=== PATIENT | female | born 2000 | race Caucasian/White ===

== ENCOUNTER 2022-10-13 16:29 | Day surgery (SDC) | payer MEDICAID, SELFPAY ==
[2022-10-13] VITALS (15 sets, daily range): BP systolic 117–131; BP diastolic 71–89; PULSE 84–113; RESP 16–20; TEMP 37.1–37.8; O2SAT 94–99
--- NOTE | 2022-10-13 17:03 | CRLHL7_ITS ---
For Patients: As a result of the Century Cures Act, medical imaging exams and procedure reports are released immediately into your electronic medical record. You may view this report before your referring provider. If you have questions, please contact your health care provider. INDICATION: Sore throat. TECHNIQUE: CT of the neck with 89 cc Isovue 370 iodinated contrast agent. Coronal and sagittal reconstructions are included. COMPARISON: None. FINDINGS: There is enlargement and hyper enhancement involving the bilateral palatine tonsils, compatible with tonsillitis/pharyngitis. There is a right peritonsillar abscess which measures 18 x 27 millimeters in axial plane and 25 millimeters in craniocaudal plane. There is associated medial displacement of the right-sided tonsil. There is mild enlargement of the uvula. There is partial effacement of the oropharyngeal airway. Edematous enlargement involving the right-sided hypopharynx/supraglottic larynx. Cellulitic changes are present within the right submandibular space and anterior neck. Multiple enlarged reactive lymph nodes within the upper neck. The airway including the trachea is normal and is patent. The parotid glands, submandibular and sublingual glands are normal in appearance. The thyroid gland is normal in appearance. The vascular structures opacify normally with contrast material. No suspicious lytic or blastic osseous lesions. Scattered cervical spondylosis without significant bony neural foraminal stenosis. No periapical dental disease. Visualized paranasal sinuses and mastoid air cells are clear. Visualized orbital and intracranial contents are normal. Supraclavicular regions, mediastinum and soft tissues of the imaged chest wall are normal. Visualized portions of the upper lungs are clear. IMPRESSION: 1. Findings compatible with tonsillitis/pharyngitis. There is a 27 millimeter right peritonsillar abscess. Mass effect results in partial effacement of the pharyngeal airway. Edema/cellulitis involves the right-sided supraglottic larynx/hypopharynx and overlying soft tissues of the neck. Please note that all CT scans at this facility use dose modulation, iterative reconstruction, and/or weight-based dosing when appropriate to reduce radiation dose to as low as reasonably achievable. Dictated by Rudi Gonzlaez MD @ 10/13/2022 6:59:38 PM (Electronically Signed)
--- NOTE | 2022-10-13 17:05 | ED.GENADULT ---
HPI - General Adult General Chief complaint: Cough Stated complaint: [place]--cough, weakness Time Seen by Provider: 10/13/22 16:38 History of Present Illness HPI narrative: This 22-year-old female comes in reporting sore throat over the past 5 days. She states that she was not feeling well over the past month with occasional sore throats but it has been much worse over the past 5 days. She was seen twice elsewhere for these symptoms in these past few days. She did received IV doses of steroids and was diagnosed with mononucleosis. She comes in today stating that she has trouble opening her mouth and does not want to swallow but rather is spitting frequently. She does not report any fevers. She does arrive here with a temperature of 100.0? F and a pulse at 105. Related Data Home Medications Medication Instructions Recorded Confirmed No Known Home Medications 10/13/22 10/13/22 Allergies Allergy/AdvReac Type Severity Reaction Status Date / Time amoxicillin AdvReac Mild Verified 10/13/22 16:46 Penicillins AdvReac Mild Verified 10/13/22 16:46 Review of Systems Status of ROS: Reports: 10 or more systems reviewed and unremarkable except as noted in History and below Narrative: Constitutional: No fevers, no weight gain or loss. Eyes: No discharge. No vision changes. HENT: No congestion, no ear pain. Sore throat with muffled voice and trismus. Cardiovascular: No chest pain, no palpitations. Respiratory: No shortness of breath, no wheezes, no cough. Gastrointestinal: No abdominal pain, no vomiting, no diarrhea. Genitourinary: No dysuria, no hematuria. Musculoskeletal: Normal range of motion. Skin: No rashes, no pruritis. Neurological: No dizziness, weakness, sensory change, speech change. Endo/Heme/Allergies: No bruising or bleeding. No polydipsia. Pysch: no suicidality, no anxiety, no insomnia. All other systems reviewed and are negative. PFSH PFSH Social History Smoking Status: Never smoker Do you use any of these nicotine containing products: None How often do you have a drink containing alcohol: never How often do you have six or more drinks on one occasion: Never AUDIT-C Alcohol total score: 0 Non-prescribed substance use: denies use Exam Narrative: Exam Narrative: Constitutional: Well-developed, well-nourished, no acute distress. HEENT: The patient does not open her mouth very wide. With the assistance of a tongue blade I was not able yet to assess her posterior oropharynx visually. She does have some anterior cervical lymphadenopathy. Neck: Normal range of motion. Nontender. Supple. Heart: Regular. No murmurs. Borderline tachycardia. Intact distal pulses. Lungs: Clear to auscultation. No chest discomfort. No wheezes, rhonchi, or rales. Abdomen: Normal bowel sounds. Nontender. No rebound tenderness. Genitalia: Deferred. Back: No midline tenderness. Normal range of motion. Extremities: Normal range of motion. No injury. Skin: Intact. No rash. Warm. No erythema or pallor. Neurologic: No altered sensation. No weakness. Alert and oriented. Psychiatric: No suicidality. No anxiety or depression. No insomnia. Nursing notes and vitals signs are reviewed. Const: Vital Signs, click to edit/add: Vital Signs - 24 hr 10/13/22 16:38 10/13/22 17:38 10/13/22 18:03 Temperature 100.0 F H Pulse Rate [Pulse Oximeter] 105 H 88 90 Respiratory Rate 18 16 16 Blood Pressure [Ri ght Upper Arm] 131/89 Pulse Oximetry 97 98 97 Oxygen Delivery Me thod Room Air Room Air Room Air Course Vital Signs Vital signs: Initial Vital Signs Temperature 100.0 F H 10/13/22 16:38 Temperature Source Temporal Artery Scan 10/13/22 16:38 Pulse Rate 105 H 10/13/22 16:38 Pulse Rhythm Regular 10/13/22 16:38 Respiratory Rate 18 10/13/22 16:38 Blood Pressure 131/89 10/13/22 16:38 Blood Pressure Mean 103 10/13/22 16:38 Blood Pressure Position Sitting 10/13/22 16:38 Pulse Oximetry 97 10/13/22 16:38 Oxygen Delivery Method Room Air 10/13/22 16:38 Vital Signs Temperature 100.0 F H 10/13/22 16:38 Pulse Rate 105 H 10/13/22 16:38 Respiratory Rate 18 10/13/22 16:38 Blood Pressure 131/89 10/13/22 16:38 Pulse Oximetry 97 10/13/22 16:38 Oxygen Delivery Method Room Air 10/13/22 16:38 Temperature 100.0 F H 10/13/22 16:38 Pulse Rate 90 10/13/22 18:03 Respiratory Rate 16 10/13/22 18:03 Blood Pressure 131/89 10/13/22 16:38 Pulse Oximetry 97 10/13/22 18:03 Oxygen Delivery Method Room Air 10/13/22 18:03 Medical Decision Making MDM Narrative Medical decision making narrative: This patient comes in with muffled voice, trismus, and sore throat for 5 days. She was diagnosed with mononucleosis and did have a couple steroid treatments. She has worsened since then. She is showing symptoms suspicious for a abscess. An IV was established and she had a CT scan of the soft tissue of her neck with IV contrast. This does show evidence of a right-sided abscess measuring 2.7 cm. The patient's airway is intact. I did speak with the Ear Nose and Throat physician on-call, Dr. Flowers, who states that he will come in and drain the abscess. Lab Data Labs: Lab Results 10/13/22 10/13/22 Range/Units 17:20 17:32 WBC 13.45 H (4.50-11.00) K/uL RBC 4.31 (4.00-5.20) m/uL Hgb 10.4 L (12.0-16.0) gm/dL Hct 34.1 (33.0-51.0) % MCV 79 L (80-100) fL MCH 24 L (26-34) pg MCHC 31 L (32-36) gm/dL RDW Coeff of Karri 16.3 H (11.5-15.5) % Plt Count 232 (140-440) K/uL Neut % (Auto) 38.3 L (42.0-72.0) % Lymph % (Auto) 52.9 H (20-44) % [place] % (Auto) 8.3 (0.0-11.0) % Eos % (Auto) 0.0 (0.0-7.0) % Baso % (Auto) 0.2 (0.0-3.0) % Neut # (Auto) 5.20 (1.7-7.0) K/uL Lymph # (Auto) 7.10 H (0.90-2.90) K/uL [place] # (Auto) 1.10 H (0.00-0.90) K/UL Eos # (Auto) 0.00 (0.00-0.50) K/uL Baso # (Auto) 0.00 (0.00-0.30) K/uL Abs Immat Gran (auto) 0.00 (0.00-0.30) K/uL Imm/Tot Granulo (auto) 0.3 % Diff Slide Review Acceptable Review (Acceptable) Sodium 139 (135-149) mmol/L Potassium 4.0 (3.6-5.1) mmol/L Chloride 105 (96-114) mmol/L Carbon Dioxide 22 (20-32) mmol/L Anion Gap 12 (7-15) mEq/L BUN 14 (5-24) mg/dL Creatinine 0.6 (0.5-1.5) mg/dL Estimated GFR 130 ml/min Glucose 90 (60-115) mg/dL Calcium 9.2 (8.4-10.6) mg/dL Urine HCG, Qual Negative (Negative) Monoscreen POSITIVE A (Negative) Imaging Data CT Soft Tissue Neck: Radiologist's impression: Findings compatible with tonsillitis/pharyngitis. There is a 27 millimeter right peritonsillar abscess. Mass effect results in partial effacement of the pharyngeal airway. Edema/cellulitis involves the right-sided supraglottic larynx/hypopharynx and overlying soft tissues of the neck. Discharge Plan Discharge Clinical Impression: Tonsillar abscess Patient Disposition: XFER to OR Condition: Unchanged Prescriptions: No Action No Known Home Medications Follow Up/Referrals: Femi Morales MD [Referring] -
[2022-10-13] MEDS: KETOROLAC 30 MG/ML inj IVP (17:25)
[2022-10-13 17:34] LABS: Basophils Percent Auto 0.2 % (0.0-3.0); Hematocrit 34.1 % (33.0-51.0); Hemoglobin* 10.4 gm/dL (12.0-16.0); Immature Granulocytes Pct Auto 0.3 %; Lymphocytes Percent Auto 52.9 % (20-44); Mean Corpuscular HGB Conc 31 gm/dL (32-36); Mean Corpuscular Hemoglobin 24 pg (26-34); Mean Corpuscular Volume 79 fL (80-100); Monocytes Percent Auto 8.3 % (0.0-11.0); Neutrophils Percent Auto 38.3 % (42.0-72.0); Platelet Count* 232 K/uL (140-440); RDW Coefficient of Variation % 16.3 % (11.5-15.5); Red Blood Count 4.31 m/uL (4.00-5.20); White Blood Count* 13.45 K/uL (4.50-11.00)
[2022-10-13] MEDS: 0.9 % SODIUM CHLORIDE 1000 ml 1,000 ML IV (17:42)
[2022-10-13 17:43] LABS: Slide Review Reflex Yes
[2022-10-13 17:49] LABS: Chloride* 105 mmol/L (96-114); Sodium* 139 mmol/L (135-149)
[2022-10-13 17:52] LABS: Anion Gap 12 mEq/L (7-15); Carbon Dioxide* 22 mmol/L (20-32); Creatinine* 0.6 mg/dL (0.5-1.5); Estimated Glomerular Filt Rate 130 ml/min
[2022-10-13 17:52] LABS: Ur HCG Qualitative* Negative (Negative)
[2022-10-13 17:53] LABS: Blood Urea Nitrogen* 14 mg/dL (5-24); Calcium* 9.2 mg/dL (8.4-10.6); Glucose* 90 mg/dL (60-115)
[2022-10-13 18:07] LABS: Slide Review Acceptable Review (Acceptable)
[2022-10-13 18:15] LABS: Mono Screen* POSITIVE (Negative)
--- NOTE | 2022-10-13 19:21 | ED.NURSE ---
Dr. Miller, ENT requested OR crew called in. House Sup notified. ENT ETA 30min.
--- NOTE | 2022-10-13 19:44 | ED.NURSE ---
Patient report given to HYDROPULPER OPERATOR.
[2022-10-13] MEDS: LACTATED RINGERS 1000 ML 1,000 ML 75 ML IV (20:17)
--- NOTE | 2022-10-13 20:47 | P.ANES_ITS ---
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
--- NOTE | 2022-10-13 21:00 | P.PCN_ITS ---
Procedure Note Date Seen: 10/13/22 Date of procedure: 10/13/22 Will [facility] bill your pro fee for this procedure?: Yes Pre-op diagnosis: Right peritonsillar abscess Post-op diagnosis: same Procedure: Incision and drainage right peritonsillar abscess under general anesthesia Procedure Description: Patient was seen in the emergency room with 1 month history of sore throat. She was diagnosed with mononucleosis 1 week ago elsewhere. She presented today with a worsening sore throat. CT scan was obtained revealed a 2.7 cm right peritonsillar abscess. Recommended incision and drainage right peritonsillar abscess. Discussed goals, risks and potential complications. Discussed possible difficulties and healing secondary to mononucleosis. Discussed potential need for tonsillectomy. Signed consent was obtained. Preop diagnosis: Right peritonsillar abscess, mononucleosis Postop diagnosis: Same Procedure: Incision and drainage right peritonsillar abscess Anesthesia: General oral endotracheal anesthesia Surgeon Dr. Chung Miller, no assistants Procedure: After adequate general oral endotracheal anesthesia, patient was prepped and draped in the [place] position. The large mouth gag was inserted in the oropharynx was exposed. She had an exit of tonsillitis the right side with some bulging of the peritonsillar soft palate region. There was some drainage of pus from the superior tonsil. Incision was made with the needlepoint cautery in the midportion peritonsillar region approximately 1 cm. With blunt dissection with the curved forceps the abscess cavity was entered in a posterior-inferior direction. Large amount of pus was suctioned clear. Cavity was irrigated with saline. With initial incision and removal of pus, culture for general bacteria and sensitivities was obtained. Hemostasis of the incision edge was obtained with spatula tip cautery. Patient tolerated procedure well, was awakened and extubated in the operating room and returned to the recovery room in stable condition. Is with blood loss was minimal, less than 1 mL.. Anesthesia: GETA Surgeon: Chung Miller MD Estimated blood loss (mL): 0 Pathology: specimen obtained, sent to pathology Condition: stable Disposition: PACU
[2022-10-13] MEDS: OXYCODONE 5 MG TABLET PO (23:15)
--- NOTE | 2022-10-13 23:42 | PC.NURSE ---
pt d/c at 2315, VSS WNL, prn 5mg oxy given just before d/c crushed in pudding, d/c packet reviewed, all questions answered, pt accompanied by mother and grandma, IV removed, cath intact.
== END 2022-10-13 23:15 | disposition home or self-care (01) ==
LOC: ED 20:13 → SS 20:29
PROVIDERS: Emergency Provider Emergency Medicine Emergency Medical Services; PCP Family Medicine; Visit Provider Otolaryngology
PROC: 0C9PXZZ Drainage of Tonsils, External Approach (ICD-10-PCS; CPT 42700; principal; 2022-10-13 20:00)
DX: J36 Peritonsillar abscess (principal); B27.90 Infectious mononucleosis, unspecified without complication
CPT/HCPCS: 42700; 00170; 36415; 70491; 80048; 81025; 84703; 85025; 86308; 87070; 87075; 87076; 87181; 87184; 87205; 99140; 99285; A9270; J0330; J1100; J1885; J2405; J2704; J3010; J7030; J7120; Q9967

== ENCOUNTER 2022-10-15 10:29 | Day surgery (SDC) | payer MEDICAID, SELFPAY ==
[2022-10-15] VITALS (18 sets, daily range): BP systolic 113–137; BP diastolic 70–87; PULSE 74–94; RESP 16–20; TEMP 36.7–37.9; O2SAT 96–99; BMI 25.1; BMI 26.3
--- NOTE | 2022-10-15 11:06 | CRLHL7_ITS ---
For Patients: As a result of the Century Cures Act, medical imaging exams and procedure reports are released immediately into your electronic medical record. You may view this report before your referring provider. If you have questions, please contact your health care provider. INDICATION: TONSILAR ABSCESS, RECURRENCE? TECHNIQUE: CT of the neck with 89 ml iodinated contrast agent. Coronal and sagittal reconstructions are included. COMPARISON: 10/13/2022 CT FINDINGS: Mild craniocaudal enlargement of right peritonsillar abscess measuring 2.3 cm AP x 1.7 cm TR x 2.4 cm craniocaudal, previously 2.2 cm craniocaudal. There is similar partial effacement of the right parapharyngeal fat space and mild to moderate narrowing of the oropharyngeal airway. Stable enlarged enhancing bilateral level 2 cervical lymph nodes compatible with reactive/infectious tendinopathy. The oral cavity, nasopharyngeal, oropharyngeal and hypopharyngeal mucosal spaces are normal. The supraglottic, glottic and infraglottic larynx are unremarkable. The airway including the trachea is normal and is patent. The parotid glands, submandibular and sublingual glands are normal in appearance. The thyroid gland is normal in appearance. The vascular structures opacify normally with contrast material. No suspicious lytic or blastic osseous lesions. Visualized paranasal sinuses and mastoid air cells are clear. Visualized orbital and intracranial contents are unremarkable. Supraclavicular regions, mediastinum and soft tissues of the imaged chest wall are unremarkable. New 4 mm right upper lobe ground-glass nodule is nonspecific (series 3, image 88). IMPRESSION: 1. Mild craniocaudal enlargement of right peritonsillar abscess measuring 2.3 cm AP x 1.7 cm TR x 2.4 cm craniocaudal, previously 2.2 cm craniocaudal. Similar partial effacement of the right parapharyngeal fat space and mild to moderate narrowing of the oropharyngeal airway. 2. Stable enlarged enhancing bilateral level 2 cervical lymph nodes compatible with reactive/infectious tendinopathy. Increased size of bilateral level 5 lymph nodes likely reactive in etiology. 3. New 4 mm right upper lobe ground-glass nodule is nonspecific but could be infectious inflammatory in etiology. Please note that all CT scans at this facility use dose modulation, iterative reconstruction, and/or weight-based dosing when appropriate to reduce radiation dose to as low as reasonably achievable. Dictated by Lan Davis MD @ 10/15/2022 12:21:43 PM (Electronically Signed)
--- NOTE | 2022-10-15 11:07 | ED.GENADULT ---
HPI - General Adult General Chief complaint: Sore Throat Stated complaint: [place], abscess in throat Time Seen by Provider: 10/15/22 10:39 History of Present Illness HPI narrative: This 22-year-old female was seen by me a couple days ago because of a tonsillar abscess. She was admitted to the OR for drainage of this abscess and did better until this morning where she again has trismus and does not want to speak and is spitting out her secretions. Her symptoms are complicated with positive lab results for mononucleosis. She is not on an antibiotic. She arrives here with normal vital signs. The patient's mother contacted the ear nose and throat physician on-call who recommended that she come back here for repeat imaging. Related Data Allergies Allergy/AdvReac Type Severity Reaction Status Date / Time amoxicillin AdvReac Mild Verified 10/15/22 11:37 Penicillins AdvReac Mild Verified 10/15/22 11:37 Review of Systems Status of ROS: Reports: 10 or more systems reviewed and unremarkable except as noted in History and below Narrative: Constitutional: No fevers, no weight gain or loss. Eyes: No discharge. No vision changes. HENT: Sore throat with trismus and muffled voice. Cardiovascular: No chest pain, no palpitations. Respiratory: No shortness of breath, no wheezes, no cough. Gastrointestinal: No abdominal pain, no vomiting, no diarrhea. Genitourinary: No dysuria, no hematuria. Musculoskeletal: Normal range of motion. Skin: No rashes, no pruritis. Neurological: No dizziness, weakness, sensory change, speech change. Endo/Heme/Allergies: No bruising or bleeding. No polydipsia. Pysch: no suicidality, no anxiety, no insomnia. All other systems reviewed and are negative. PFSH PFS Social History Smoking Status: Never smoker Do you use any of these nicotine containing products: None How often do you have a drink containing alcohol: never How often do you have six or more drinks on one occasion: Never AUDIT-C Alcohol total score: 0 Non-prescribed substance use: denies use service: No Exam Narrative: Exam Narrative: Constitutional: Well-developed, well-nourished, no acute distress. HEENT: Normocephalic, atraumatic. Trismus. I am unable to visualize her posterior oropharynx. Cervical lymphadenopathy. Neck: Normal range of motion. Nontender. Supple. Heart: Regular. No murmurs. Normal rate. Intact distal pulses. Lungs: Clear to auscultation. No chest discomfort. No wheezes, rhonchi, or rales. Abdomen: Normal bowel sounds. Nontender. No rebound tenderness. Genitalia: Deferred. Back: No midline tenderness. Normal range of motion. Extremities: Normal range of motion. No injury. Skin: Intact. No rash. Warm. No erythema or pallor. Neurologic: No altered sensation. No weakness. Alert and oriented. Psychiatric: No suicidality. No anxiety or depression. No insomnia. Nursing notes and vitals signs are reviewed. Const: Vital Signs, click to edit/add: Vital Signs - 24 hr 10/15/22 10:41 10/15/22 13:20 Temperature 98.0 F 98.4 F Pulse Rate [Pulse Oximeter] 94 74 Respiratory Rate 20 20 Blood Pressure [Ri ght Upper Arm] 124/83 118/77 Pulse Oximetry 99 98 Oxygen Delivery Me thod Room Air Course Vital Signs Vital signs: Initial Vital Signs Temperature 98.0 F 10/15/22 10:41 Temperature Source Temporal Artery Scan 10/15/22 10:41 Pulse Rate 94 10/15/22 10:41 Pulse Rhythm Regular 10/15/22 10:41 Respiratory Rate 20 10/15/22 10:41 Blood Pressure 124/83 10/15/22 10:41 Blood Pressure Mean 96 10/15/22 10:41 Blood Pressure Position Sitting 10/15/22 10:41 Pulse Oximetry 99 10/15/22 10:41 Vital Signs Temperature 98.0 F 10/15/22 10:41 Pulse Rate 94 10/15/22 10:41 Respiratory Rate 20 10/15/22 10:41 Blood Pressure 124/83 10/15/22 10:41 Pulse Oximetry 99 10/15/22 10:41 Temperature 98.4 F 10/15/22 13:20 Pulse Rate 74 10/15/22 13:20 Respiratory Rate 20 10/15/22 13:20 Blood Pressure 118/77 10/15/22 13:20 Pulse Oximetry 98 10/15/22 13:20 Oxygen Delivery Method Room Air 10/15/22 13:20 Medical Decision Making MDM Narrative Medical decision making narrative: This patient comes with recurrent symptoms suggestive of tonsillar abscess. She was seen by me 2 days ago with similar symptoms of trismus, muffled voice, and unwillingness to swallow. CT imaging at that time showed a 2.7 cm abscess in the right tonsillar area. She had this incised and drained and felt better yesterday but symptoms have returned today. She is unable to open her mouth very wide again and has unwillingness to speak or swallow. Ear nose and throat physician was contacted and she was instructed to return here for repeat imaging. CT imaging does show a recurrent of this abscess now measuring about 2.5 cm. At the same time the patient was here I received a phone call from the lab who would been processing a a throat swab from a couple days ago. It was negative initially but the cultures showing some suspicion for group C strep and a possibility of an anaerobic organism. This culture is being sent away for further clarification of the culture results and for sensitivities. I did inform Dr. Flowers regarding these findings. The patient may benefit from an anaerobic directed antibiotics such as Flagyl but will undergo another incision and drainage in the operating room. There is some benefit to giving clindamycin also which should not interact with her current positive mononucleosis status. The patient's mother states that they have seen in epidemiology assist also because it seems that members of her family have more than normal occurrences of skin abscesses. Dr. Flowers is in clinic till mid to late afternoon and will then come here to incise and drain this abscess. Lab Data Labs: Lab Results 10/15/22 Range/Units 11:25 WBC 7.76 (4.50-11.00) K/uL RBC 4.49 (4.00-5.20) m/uL Hgb 10.9 L (12.0-16.0) gm/dL Hct 35.6 (33.0-51.0) % MCV 79 L (80-100) fL MCH 24 L (26-34) pg MCHC 31 L (32-36) gm/dL RDW Coeff of Karri 15.8 H (11.5-15.5) % Plt Count 264 (140-440) K/uL Neut % (Auto) 45.7 (42.0-72.0) % Lymph % (Auto) 45.5 H (20-44) % [place] % (Auto) 8.0 (0.0-11.0) % Eos % (Auto) 0.4 (0.0-7.0) % Baso % (Auto) 0.3 (0.0-3.0) % Neut # (Auto) 3.55 (1.7-7.0) K/uL Lymph # (Auto) 3.50 H (0.90-2.90) K/uL [place] # (Auto) 0.60 (0.00-0.90) K/UL Eos # (Auto) 0.03 (0.00-0.50) K/uL Baso # (Auto) 0.02 (0.00-0.30) K/uL Abs Immat Gran (auto) 0.01 (0.00-0.30) K/uL Imm/Tot Granulo (auto) 0.1 % Diff Slide Review Acceptable Review (Acceptable) Discharge Plan Discharge Clinical Impression: Tonsillar abscess Patient Disposition: XFER to OR Condition: Unchanged
[2022-10-15] MEDS: 0.9 % SODIUM CHLORIDE 1000 ml 1,000 ML IV (11:26)
[2022-10-15 11:41] LABS: Basophils Absolute Auto 0.02 K/uL (0.00-0.30); Basophils Percent Auto 0.3 % (0.0-3.0); Eosinophils Absolute Auto 0.03 K/uL (0.00-0.50); Eosinophils Percent Auto 0.4 % (0.0-7.0); Hematocrit 35.6 % (33.0-51.0); Hemoglobin* 10.9 gm/dL (12.0-16.0); Immature Granulocytes Abs Auto 0.01 K/uL (0.00-0.30); Immature Granulocytes Pct Auto 0.1 %; Lymphocytes Percent Auto 45.5 % (20-44); Mean Corpuscular HGB Conc 31 gm/dL (32-36); Mean Corpuscular Hemoglobin 24 pg (26-34); Mean Corpuscular Volume 79 fL (80-100); Neutrophils Absolute Auto 3.55 K/uL (1.7-7.0); Neutrophils Percent Auto 45.7 % (42.0-72.0); Platelet Count* 264 K/uL (140-440); RDW Coefficient of Variation % 15.8 % (11.5-15.5); Red Blood Count 4.49 m/uL (4.00-5.20); White Blood Count* 7.76 K/uL (4.50-11.00)
[2022-10-15] MEDS: KETOROLAC 15 MG/ML inj IVP (11:46)
[2022-10-15 11:48] LABS: Slide Review Reflex Yes
[2022-10-15 12:24] LABS: Slide Review Acceptable Review (Acceptable)
--- NOTE | 2022-10-15 13:51 | ED.NURSE ---
Pt handed off to same day surgery.
[2022-10-15] MEDS: LACTATED RINGERS 1000 ML 1,000 ML 100 ML IV (15:15)
--- NOTE | 2022-10-15 15:21 | SUR.PREOP ---
no ucg needed as per anesthesia. ucg was done earlier this week
--- NOTE | 2022-10-15 15:41 | W.ANESCHARGE ---
Anesthesia Charges Start Date/Time Anesthesia Start Date: 10/15/22 Anesthesia Start Time: 15:29 Stop Date/Time Anesthesia Stop Date: 10/15/22 Anesthesia Stop Time: 15:53 Summary Emergency: MDA
--- NOTE | 2022-10-15 15:43 | W.PM.ENTHP ---
ENT-H&P: HPI History of Present Illness Date Seen: 10/15/22 Chief complaint: [place], abscess in throat recurrent right peritonsi Narrative: Brit Centeno is a 22 year old female who had a right peritonsillar abscess drained by Dr. Miller on Wednesday evening. He felt was well drained and irrigated however she is allergic to penicillins and also has mono so no antibiotics were given postoperatively. She now has recurrent trismus and sore throat. Review of Systems Narrative: Unchanged from previous [facility] Social History Smoking Status: Never smoker Do you use any of these nicotine containing products: None How often do you have a drink containing alcohol: never How often do you have six or more drinks on one occasion: Never AUDIT-C Alcohol total score: 0 Non-prescribed substance use: denies use service: No Meds Home Medications and Allergies Allergies Allergy/AdvReac Type Severity Reaction Status Date / Time amoxicillin AdvReac Mild Verified 10/15/22 11:37 Penicillins AdvReac Mild Verified 10/15/22 11:37 Exam Narrative: Exam Narrative: General skin neuro respiratory gait peripheral vascular vocal quality skin of head neck negative with the exception of muffled voice, she has severe trismus. Obvious recurrent right peritonsillar abscess. Const: Vital Signs, click to edit/add: Vital Signs - 24 hr 10/15/22 10:41 10/15/22 13:20 10/15/22 14:34 Temperature 98.0 F 98.4 F 99.9 F H Pulse Rate 79 Pulse Rate [Pulse Oximeter] 94 74 Respiratory Rate 20 20 16 Blood Pressure 124/82 Blood Pressure [Ri ght Upper Arm] 124/83 118/77 Pulse Oximetry 99 98 99 Oxygen Delivery Me thod Room Air Room Air ENT-H&P: Result Labs Labs: Short CBC 10/15/22 Range/Units 11:25 WBC 7.76 (4.50-11.00) K/uL Hgb 10.9 L (12.0-16.0) gm/dL Hct 35.6 (33.0-51.0) % Plt Count 264 (140-440) K/uL Assessment and Plan Assessment and plan (1) Tonsillar abscess: Status: Acute Plan Recurrent right peritonsillar abscess. Drained [address] scan. Reviewed options and risks with her. Would recommend reoperation for recurrent drainage and try to establish inferior drainage. Will cover with clindamycin postoperatively. Risks including anesthesia bleeding recurrence adverse reaction to clindamycin etc. were all reviewed. Rec discussed use of probiotics with the clindamycin.
--- NOTE | 2022-10-15 15:45 | W.PM.ENTPROC ---
Procedure Note Date of procedure: 10/15/22 Procedure: Preoperative diagnosis right peritonsillar abscess recurrent drained 2 days ago Postoperative diagnosis same Procedure incision drainage right peritonsillar abscess with irrigation. Under general endotracheal anesthesia patient was prepped and draped in usual fashion the McIvor mouth gag inserted the tongue retracted forward. The previous 1 cm incision was reopened with blunt forceps causing immediate extrusion of a large amount of pus. This cavity was then irrigated copiously with normal saline. Then a blunt forceps was used to go through the cavity established inferior drainage again approximately 1 cm. Bleeding was controlled with Coblation. The patient procedure well was taken recovery in satisfactory condition. Blood loss during procedure less than 10 mL. There were no complications Surgeon: Foster Woods MD
--- NOTE | 2022-10-15 15:56 | W.ANESCHARGE ---
Anesthesia Charges Start Date/Time Anesthesia Start Date: 10/15/22 Anesthesia Start Time: 15:29 Stop Date/Time Anesthesia Stop Date: 10/15/22 Anesthesia Stop Time: 15:53 Summary Emergency: MDA
[2022-10-15] MEDS: OXYCODONE 5 MG TABLET PO (17:55)
--- NOTE | 2022-10-15 19:15 | PC.NURSE ---
Discharge Summary: Patient to 277 from PACU approx 1630. Rating pain 4-5/10 and PRN Oxycodone given x1, effective. Afebrile. Tolerating fluids and pudding with no nausea. Voiding without difficulty. Up with SBA, denies any lightheadedness or dizziness. Patient discharged home at 1850 with all personal belongings accompanied by mom. Discharge instructions including diagnosis, medications and follow plan discussed with patient and voiced understanding.
== END 2022-10-15 13:50 | disposition home or self-care (01) ==
LOC: ED 12:58 → SS 13:47
PROVIDERS: Emergency Provider Emergency Medicine Emergency Medical Services; PCP Family Medicine; Visit Provider Otolaryngology
PROC: 0C9PXZZ Drainage of Tonsils, External Approach (ICD-10-PCS; CPT 42700; principal; 2022-10-15 15:30)
DX: J36 Peritonsillar abscess (principal); B27.89 Other infectious mononucleosis with other complication
CPT/HCPCS: 42700; 00170; 36415; 70491; 85025; 99140; 99285; A9270; J0330; J1100; J1885; J2250; J2405; J2704; J3010; J7030; J7120; Q9967

== ENCOUNTER 2022-12-14 19:09 | Emergency (ER) | payer MEDICAID, SELFPAY ==
[2022-12-14 19:12] VITALS: BP 122/81; PULSE 87; RESP 16; TEMP 37.3; O2SAT 99; BMI 25.1
--- NOTE | 2022-12-14 21:49 | ED.BACK ---
HPI - Back Pain/Injury General Time Seen by Provider: 21:49 Date Seen: 12/14/22 Chief Complaint: Back Injury/Pain Stated Complaint: R abdomen pain Time Seen by Provider: 12/14/22 21:48 Source: patient and RN notes reviewed Mode of arrival: ambulatory Limitations: no limitations History of Present Illness HPI Narrative: This 22-year-old female is coming in with severe right sided pain sustained after a fall last week. On she slipped and fell onto her left buttock. She states she never had any left pain. Since then, she is noted pain in her right side, below the ribcage. It hurts to breathe. She notes she has had nausea and no appetite. She has maybe tried to take some ibuprofen but has done it minimally because she has not been eating. No vomiting. There is some right upper abdominal pain with this. No urinary changes. No chance for per patient. She notes 2 months ago that she had peritonsillar abscess that required drainage twice in the setting of mono. This has been a week and has not changed, she states she is in the same amount of pain as she was. She really does not understand how falling on her left side would give her right-sided pain afterwards. She does admit there is maybe a little low back pain initially after the fall but that has abated. She is walking without difficulty. Patient is not on any blood thinners. MD elicited complaint: fall Related Data Previous Rx's Medication Instructions Recorded levofloxacin 500 mg tablet 500 mg PO DAILY #9 tabs 12/15/22 ondansetron 4 mg disintegrating 4 mg PO Q6H PRN nausea and 12/15/22 tablet vomiting #10 tabs Allergies Allergy/AdvReac Type Severity Reaction Status Date / Time amoxicillin AdvReac Mild Verified 12/14/22 22:43 Penicillins AdvReac Mild Verified 12/14/22 22:43 Review of Systems Status of ROS: Reports: 6 or more systems reviewed and unremarkable except as noted in History and below [facility] Social History Smoking Status: Never smoker Do you use any of these nicotine containing products: None Second hand tobacco smoke exposure: No How often do you have a drink containing alcohol: never How often do you have six or more drinks on one occasion: Never AUDIT-C Alcohol total score: 0 Non-prescribed substance use: denies use service: No Exam Const: Vital Signs, click to edit/add: Vital Signs - 24 hr 12/14/22 19:12 Temperature 99.1 F Pulse Rate [Pulse Oximeter] 87 Respiratory Rate 16 Blood Pressure [Ri ght Upper Arm] 122/81 Pulse Oximetry 99 Oxygen Delivery Me thod Room Air Brit is a very pleasant 22-year-old female, seen in exam room 4. Sclera clear, face atraumatic, speaking in complete sentences with normal speech. Neck is supple, no midline tenderness over her spine. No paraspinous tenderness. No traumatic change noted on inspection of her back. Lungs are clear, good air entry, no wheezing or crackles, no tachypnea, no accessory muscle use. CV regular rate and rhythm, no murmur, normal S1 and S2, no S3 or S4. Abdomen is not distended, she has right upper quadrant abdominal tenderness in maybe lower rib border tenderness on that side but no crepitus or step-off. I do not feel any organomegaly. Patient is ambulatory in the ED of her own accord. Does not seem to have any pain when I flex her right hip area, nontender over the iliac crests or the lumbar back area and palpation. Documenting provider has reviewed patient's vital signs: yes Course Course ED Course: Unfortunately with her history in now complaints of abdominal pain, do feel we need to proceed with imaging. We will be doing chest abdomen pelvis with IV contrast, do think we need to look at intra-abdominal pathology. Will get comprehensive metabolic panel and CBC as well. Need to consider intra-abdominal pathology from the fall. Hopefully she still would not be afflicted with complications from having had mono and then a fall. Will obviously be getting liver functions. It is possible that this could just be musculoskeletal, could possibly of had a rib fracture in the fall that did not manifest immediately. We will do the imaging to rule out acute underlying pathology, can likely treat for general musculoskeletal issues if we find normal imaging. Reevaluation(s) Time of Reevaluation #1: 00:11 Reevaluation #1: Have reviewed with patient her CT findings. It would appear that she has an infection with pyelonephritis, right collecting system. She is penicillin allergic, would favor fluoroquinolones in this situation as we have no prior cultures to go by. She is not in any sports. Did discuss the possible tendon rupture and small select few. She is having some pain with movement as I talked to her, will give her some IV fluids, 1st dose of Levaquin and IV Toradol. Vital Signs Vital signs: Initial Vital Signs Temperature 99.1 F 12/14/22 19:12 Temperature Source Temporal Artery Scan 12/14/22 19:12 Pulse Rate 87 12/14/22 19:12 Respiratory Rate 16 12/14/22 19:12 Blood Pressure 122/81 12/14/22 19:12 Blood Pressure Mean 94 12/14/22 19:12 Blood Pressure Position Sitting 12/14/22 19:12 Pulse Oximetry 99 12/14/22 19:12 Oxygen Delivery Method Room Air 12/14/22 19:12 Vital Signs Temperature 99.1 F 12/14/22 19:12 Pulse Rate 87 12/14/22 19:12 Respiratory Rate 16 12/14/22 19:12 Blood Pressure 122/81 12/14/22 19:12 Pulse Oximetry 99 12/14/22 19:12 Oxygen Delivery Method Room Air 12/14/22 19:12 Temperature 99.1 F 12/14/22 19:12 Pulse Rate 87 12/14/22 19:12 Respiratory Rate 16 12/14/22 19:12 Blood Pressure 122/81 12/14/22 19:12 Pulse Oximetry 99 12/14/22 19:12 Oxygen Delivery Method Room Air 12/14/22 19:12 Medications Administered Medications: Discontinued Medications Generic Name Dose Route Start Last Admin Trade Name Freq PRN Reason Stop Dose Admin Sodium Chloride 1,000 mls @ 1,000 mls/hr 12/15/22 00:13 12/15/22 00:25 0.9 % Sodium Chloride 1000 Ml IV 12/15/22 01:12 1,000 mls/hr .Q1H CHARLETTE Administration Ketorolac Tromethamine 15 mg 12/15/22 00:13 12/15/22 00:26 Ketorolac 15 Mg/Ml Inj IVP 12/15/22 00:14 15 mg ONCE ONE Administration Levofloxacin 500 mg 12/15/22 00:13 12/15/22 00:28 Levofloxacin 500 Mg Tablet PO 12/15/22 00:14 500 mg ONCE ONE Administration MDM - Back Pain/Injury Lab Data Attestation: I reviewed the patient's lab results. Labs: Lab Results 12/14/22 12/14/22 Range/Units 22:11 23:41 WBC 6.10 (4.50-11.00) K/uL RBC 4.71 (4.00-5.20) m/uL Hgb 11.0 L (12.0-16.0) gm/dL Hct 35.7 (33.0-51.0) % MCV 76 L (80-100) fL MCH 23 L (26-34) pg MCHC 31 L (32-36) gm/dL RDW Coeff of Karri 15.1 (11.5-15.5) % Plt Count 264 (140-440) K/uL Neut % (Auto) 75.1 H (42.0-72.0) % Lymph % (Auto) 14.9 L (20-44) % [place] % (Auto) 8.4 (0.0-11.0) % Eos % (Auto) 0.5 (0.0-7.0) % Baso % (Auto) 0.3 (0.0-3.0) % Neut # (Auto) 4.60 (1.7-7.0) K/uL Lymph # (Auto) 0.90 (0.90-2.90) K/uL [place] # (Auto) 0.50 (0.00-0.90) K/UL Eos # (Auto) 0.03 (0.00-0.50) K/uL Baso # (Auto) 0.02 (0.00-0.30) K/uL Abs Immat Gran (auto) 0.05 (0.00-0.30) K/uL Imm/Tot Granulo (auto) 0.8 % Sodium 139 (135-149) mmol/L Potassium 3.6 (3.6-5.1) mmol/L Chloride 105 (96-114) mmol/L Carbon Dioxide 23 (20-32) mmol/L Anion Gap 11 (7-15) mEq/L BUN 13 (5-24) mg/dL Creatinine 0.7 (0.5-1.5) mg/dL Estimated Creat Clear 140.90 Estimated GFR 125 ml/min Glucose 88 (60-115) mg/dL Calcium 9.3 (8.4-10.6) mg/dL Total Bilirubin 0.4 (0.1-1.5) mg/dL AST 25 (12-35) U/L ALT 18 (4-35) U/L Alkaline Phosphatase 79 (40-150) U/L Total Creatine Kinase 92 (41-117) U/L Total Protein 9.0 H (6.0-8.3) g/dL Albumin 5.0 (3.3-5.0) g/dL Urine Color Yellow (Yellow) Urine Appearance Slightly Cloudy A (Clear) Urine pH 7.0 (5.0-8.5) Ur Specific [place] 1.010 (1.000-1.030) Urine Protein Negative (Negative) Urine Glucose (UA) Negative (Negative) Urine Ketones 3+ A (Negative) Urine Blood Trace-intact A (Negative) Urine Nitrite Negative (Negative) Urine Bilirubin Negative (Negative) Urine Urobilinogen 0.2 (0.2-1.0) Ur Leukocyte Esterase Trace A (Negative) Urine RBC 2-5 A (0-2) Urine WBC 10-25 A (0-5) Ur Squamous Epith Cells Few (None-Few) Urine Bacteria Few A (None) Imaging Data CT Chest/Ab/Pelvis: Attestation: I have reviewed the pertinent imaging results. Radiologist's impression: Patient: BRIT KANG Facility:?[facility] Patient ID:?[id number] Site Patient ID:?[id number]. Site :?[id number] Study:?CT Chest/Abd/Pelvis w/ 89cc [id number] 11:07:53 PM Ordering Physician:Ricco Santos Final Report: INDICATION: Trauma, given history of recent fall on left buttock 1 week ago. Right flank pain. Right upper quadrant pain. Pleuritic pain. TECHNIQUE: Multiplanar CT images of the chest, abdomen and pelvis were acquired after the administration of 89 mL of Omnipaque 350 intravenous contrast. COMPARISON: None. FINDINGS: CHEST: Lower neck: Unremarkable thyroid gland. Vascular: Thoracic aorta and main pulmonary artery are normal in caliber. Heart: Heart size is normal. Mediastinum: No mass or adenopathy. Lungs: No focal consolidation. Pleura: No pleural effusions or pneumothorax. Chest wall and axilla: No mass or adenopathy. Bones: No acute osseous abnormalities. ABDOMEN AND PELVIS: Liver: Unremarkable. Hepatic laceration. Gallbladder: Unremarkable. Biliary: No biliary ductal dilitation. Pancreas: Unremarkable. Spleen: Unremarkable. No splenic laceration. Adrenal glands: Unremarkable. Kidneys: No renal lacerations identified. The kidneys are symmetrically enhancing and normal in size. Mild right perinephric fat stranding indication is round right renal pelvis. No hydronephrosis. Ureters: There is excretion of contrast material into ureters bilaterally, right greater than left. There is [id number] right ureteral wall thickening and hyperenhancement, with periureteral fat stranding. No extravasation of contrast material from the ureter or renal pelvis to suggest traumatic injury. Bladder: Unremarkable. Normal left ureteral jet. No definite right ureteral jet identified, though this may not be well visualized on this nondedicated examination. Gastrointestinal: No bowel obstruction. No bowel wall thickening. Appendix is normal. No significant: Diverticulosis. Vascular structures: Unremarkable. Lymph nodes: Prominent retroperitoneal lymph nodes, likely reactive. Peritoneum: Unremarkable. No free air or significant free fluid. Pelvic Organs: Intrauterine device in place. Otherwise, unremarkable. Bones: No osseous abnormalities. IMPRESSION: 1. CT Chest: No acute intrathoracic pathology. No intrathoracic sequela of recent trauma seen on today`s CT examination. 2. CT Abdomen and Pelvis: Right perinephric and periureteric fat stranding compatible with a ureteritis. Consider infectious inflammatory etiologies and correlate with urinalysis. No abdominopelvic sequela of recent trauma seen on today`s CT examination. Findings were discussed with Dr. Mcdonald at 9:40 PM on 12/14/2022. Please note that all CT scans at this facility use dose modulation, iterative reconstruction, and/or weight-based dosing when appropriate to reduce radiation dose to as low as reasonably achievable. Dictated by Luis Briceño MD @ 12/14/2022 11:45:16 PM (Electronic Signature) Discharge Plan Discharge Clinical Impression: Pyelonephritis Patient Disposition: Home, Self-Care Condition: Stable Instructions: Kidney Infection (ED) Additional Instructions: Next dose of Levaquin due Wednesday night before bed, will take once daily and should complete this. Have written for some Zofran to help with nausea to allow you oral intake. If you are not improving over the next week, feel you are worsening at any point, are unable to take in your oral antibiotics, develops fevers/increasing pain, vomiting despite Zofran, you need to be re-evaluated. Activity Level: Activity as Tolerated Discharge Diet: Regular Prescriptions: New levofloxacin 500 mg tablet 500 mg PO DAILY Qty: 9 0RF ondansetron 4 mg tablet,disintegrating 4 mg PO Q6H PRN (Reason: nausea and vomiting) Qty: 10 0RF Follow Up/Referrals: Jackie Sainz DO [Primary Care Provider] - Stand Alone Forms: [facility] Info Instructions
--- NOTE | 2022-12-14 21:56 | CRLHL7_ITS ---
For Patients: As a result of the Century Cures Act, medical imaging exams and procedure reports are released immediately into your electronic medical record. You may view this report before your referring provider. If you have questions, please contact your health care provider. INDICATION: Trauma, given history of recent fall on left buttock 1 week ago. Right flank pain. Right upper quadrant pain. Pleuritic pain. TECHNIQUE: Multiplanar CT images of the chest, abdomen and pelvis were acquired after the administration of 89 mL of Omnipaque 350 intravenous contrast. COMPARISON: None. FINDINGS: CHEST: Lower neck: Unremarkable thyroid gland. Vascular: Thoracic aorta and main pulmonary artery are normal in caliber. Heart: Heart size is normal. Mediastinum: No mass or adenopathy. Lungs: No focal consolidation. Pleura: No pleural effusions or pneumothorax. Chest wall and axilla: No mass or adenopathy. Bones: No acute osseous abnormalities. ABDOMEN AND PELVIS: Liver: Unremarkable. Hepatic laceration. Gallbladder: Unremarkable. Biliary: No biliary ductal dilitation. Pancreas: Unremarkable. Spleen: Unremarkable. No splenic laceration. Adrenal glands: Unremarkable. Kidneys: No renal lacerations identified. The kidneys are symmetrically enhancing and normal in size. Mild right perinephric fat stranding indication is round right renal pelvis. No hydronephrosis. Ureters: There is excretion of contrast material into ureters bilaterally, right greater than left. There is [id number] right ureteral wall thickening and hyperenhancement, with periureteral fat stranding. No extravasation of contrast material from the ureter or renal pelvis to suggest traumatic injury. Bladder: Unremarkable. Normal left ureteral jet. No definite right ureteral jet identified, though this may not be well visualized on this nondedicated examination. Gastrointestinal: No bowel obstruction. No bowel wall thickening. Appendix is normal. No significant: Diverticulosis. Vascular structures: Unremarkable. Lymph nodes: Prominent retroperitoneal lymph nodes, likely reactive. Peritoneum: Unremarkable. No free air or significant free fluid. Pelvic Organs: Intrauterine device in place. Otherwise, unremarkable. Bones: No osseous abnormalities. IMPRESSION: 1. CT Chest: No acute intrathoracic pathology. No intrathoracic sequela of recent trauma seen on today`s CT examination. 2. CT Abdomen and Pelvis: Right perinephric and periureteric fat stranding compatible with a ureteritis. Consider infectious inflammatory etiologies and correlate with urinalysis. No abdominopelvic sequela of recent trauma seen on today`s CT examination. Findings were discussed with Dr. Mcdonald at 9:40 PM on 12/14/2022. Please note that all CT scans at this facility use dose modulation, iterative reconstruction, and/or weight-based dosing when appropriate to reduce radiation dose to as low as reasonably achievable. Dictated by Luis Briceño MD @ 12/14/2022 11:45:16 PM (Electronically Signed)
[2022-12-14 22:35] LABS: Chloride* 105 mmol/L (96-114); Sodium* 139 mmol/L (135-149)
[2022-12-14 22:36] LABS: Potassium* 3.6 mmol/L (3.6-5.1)
[2022-12-14 22:38] LABS: Alanine Aminotransferase* 18 U/L (4-35); Alkaline Phosphatase* 79 U/L (40-150); Anion Gap 11 mEq/L (7-15); Aspartate Amino Transferase* 25 U/L (12-35); Bilirubin Total* 0.4 mg/dL (0.1-1.5); Blood Urea Nitrogen* 13 mg/dL (5-24); Carbon Dioxide* 23 mmol/L (20-32); Creatine Kinase* 92 U/L (41-117); Creatinine* 0.7 mg/dL (0.5-1.5); Estimated Glomerular Filt Rate 125 ml/min; Glucose* 88 mg/dL (60-115)
[2022-12-14 22:39] LABS: Calcium* 9.3 mg/dL (8.4-10.6)
[2022-12-14 22:47] LABS: Basophils Absolute Auto 0.02 K/uL (0.00-0.30); Basophils Percent Auto 0.3 % (0.0-3.0); Eosinophils Absolute Auto 0.03 K/uL (0.00-0.50); Eosinophils Percent Auto 0.5 % (0.0-7.0); Hematocrit 35.7 % (33.0-51.0); Immature Granulocytes Abs Auto 0.05 K/uL (0.00-0.30); Immature Granulocytes Pct Auto 0.8 %; Lymphocytes Percent Auto 14.9 % (20-44); Mean Corpuscular HGB Conc 31 gm/dL (32-36); Mean Corpuscular Hemoglobin 23 pg (26-34); Mean Corpuscular Volume 76 fL (80-100); Monocytes Percent Auto 8.4 % (0.0-11.0); Neutrophils Percent Auto 75.1 % (42.0-72.0); Platelet Count* 264 K/uL (140-440); RDW Coefficient of Variation % 15.1 % (11.5-15.5); Red Blood Count 4.71 m/uL (4.00-5.20)
[2022-12-14 22:51] LABS: Slide Review Reflex No
[2022-12-14 23:49] LABS: Bilirubin Urine Negative (Negative); Blood Urine Trace-intact (Negative); Color Urine Yellow (Yellow); Glucose Urine Negative (Negative); Ketones Urine 3+ (Negative); Leukocyte Esterase Urine Trace (Negative); Nitrite Urine Negative (Negative); Protein Urine Negative (Negative); Urobilinogen Urine 0.2 (0.2-1.0)
[2022-12-15 00:01] LABS: Appearance Urine Slightly Cloudy (Clear); Bacteria Urine Few; Squamous Epithelial Cell Urine Few (None-Few)
[2022-12-15] MEDS: 0.9 % SODIUM CHLORIDE 1000 ml 1,000 ML IV (00:25)
[2022-12-15] MEDS: KETOROLAC 15 MG/ML inj IVP (00:26)
[2022-12-15] MEDS: levoFLOXacin 500 MG TABLET PO (00:28)
== END 2022-12-15 01:45 | disposition home or self-care (01) ==
PROVIDERS: Emergency Provider Family Medicine; PCP Family Medicine
DX: N12 Tubulo-interstitial nephritis, not specified as acute or chronic (principal)
CPT/HCPCS: 36415; 71260; 74177; 80053; 81001; 82550; 85025; 87086; 87186; 96374; 99284; A9270; J1885; J7030; Q9967

== ENCOUNTER 2023-10-20 11:08 | Outpatient (CLI) | payer MEDICAID, SELFPAY | END 2023-10-20 11:09 | disposition home or self-care (01) | LOC: NFLDREF 11:09 | PROVIDERS: PCP Family Medicine; Visit Provider Otolaryngology | DX: E04.9 Nontoxic goiter, unspecified (principal) | CPT/HCPCS: 84443 ==